=== PATIENT | male | born 1945 | race African-American/Black ===

== ENCOUNTER 2017-05-16 21:30 | Emergency (ER) | payer MEDICARE, OTHER ==
[~2017-05-16] VITALS: Ht 182.9 cm; Wt 102.0 kg
[2017-05-16 21:59] VITALS: BP 137/93
[2017-05-16] MEDS ORDERED: BACITRACIN ZINC OINT UDPKT TOP ONE (22:30)
== END 2017-05-16 23:05 | disposition home or self-care (01) ==
LOC: ER 22:05
DX: S60.413A Abrasion of left middle finger, initial encounter (principal); X58.XXXA Exposure to other specified factors, initial encounter; Y93.89 Activity, other specified; Y92.89 Other specified places as the place of occurrence of the external cause; Y99.8 Other external cause status
CPT/HCPCS: 99283